=== PATIENT | male | born 1965 | race Caucasian/White ===

== ENCOUNTER 2019-09-12 19:49 | Emergency (ER) | payer OTHER ==
[~2019-09-12] VITALS: Ht 180.3 cm; Wt 108.0 kg
[~2019-09-12 19:49] MED LIST: BENICAR HCT 401 EACH PO; BENICAR20 MG PO; DOXAZOSIN MESYLA2 MG PO; ESIDRIX25 MG PO; LEVAQUIN500 MG PO; LOPRESSOR25 MG PO; METFORMIN HCL500 M2 PO; NIACIN50 MG PO; NIFEDIPINE ER30 M1 PO; PRAVASTATIN SOD20 MG PO; PREDNISONE10 MG PO
[2019-09-12] MEDS ORDERED: ONDANSETRON HCL INJ 2MG/ML 2ML 2 MG/ML VIAL IV NR (20:02)
[2019-09-12] MEDS ORDERED: IBUPROFEN 600 MG TAB ONE (20:03)
[2019-09-12] MEDS ORDERED: MECLIZINE HCL 12.5 MG TAB PO NR (20:15)
[2019-09-12 20:23] LABS: BASOPHILS # (AUTO) 0.1 (0.0-0.1); BASOPHILS % 0.5 % (0.0-1.0); EOSINOPHILS # (AUTO) 0.1 (0.0-0.4); EOSINOPHILS % 0.7 % (0.0-6.0); HEMATOCRIT 46.4 % (38.2-49.6); HEMOGLOBIN 16.1 g/dL (14.0-18.0); LYMPHOCYTES # (AUTO) 2.7 (1.0-3.2); LYMPHOCYTES % 17.8 % (18.0-39.1); MEAN CORPUSCULAR HEMOGLOBIN 28.3 pg (28-32); MEAN CORPUSCULAR HGB CONC 34.7 g/dL (31-35); MEAN CORPUSCULAR VOLUME 81.7 fL (81-99); MONOCYTES # (AUTO) 0.6 (0.2-0.8); MONOCYTES % 4.1 % (4.4-11.3); NEUTROPHILS # (AUTO) 11.6 (2.1-6.9); NEUTROPHILS % 76.6 % (38.7-80.0); PLATELET COUNT 267 x10e3/uL (140-360); RED BLOOD COUNT 5.68 x10e6/uL (4.3-5.7); RED CELL DISTRIBUTION WIDTH 13.3 % (11.7-14.4)
[2019-09-12] MEDS ORDERED: MECLIZINE HCL 12.5 MG TAB ONE (20:36)
[2019-09-12 20:37] LABS: ANION GAP 16.7 mmol/L (8-16); CALCIUM 9.9 mg/dL (8.4-10.2); CREATININE, SERUM 1.3 mg/dL (0.72-1.25); POTASSIUM 3.7 mmol/L (3.5-5.1)
--- NOTE | 2019-09-12 21:48 | Diagnostic Imaging Report ---
EXAMINATION: Head CT without contrast. HISTORY:Dizziness. COMPARISON:Multiple prior studies, most recent CT head from 05/17/2017. TECHNIQUE: Multidetector axial images were obtained from the foramen magnum to the vertex without contrast. The images were reconstructed using brain and bone algorithms. Thin section brain images were reformatted into coronal and sagittal planes. Dose modulation, iterative reconstruction, and/or weight based adjustment of the mA/kV was utilized to reduce the radiation dose to as low as reasonably achievable. Intravenous contrast: None IMAGE QUALITY: Acceptable. FINDINGS: Skull/scalp: Expected postoperative changes from prior right frontoparietal craniotomy. Parenchyma: Unchanged chronic encephalomalacia in the right superior frontal gyrus extends posteriorly to right precentral gyrus. Nonspecific few, scattered supratentorial white matter hypodensity are likely related to small vessel ischemic changes. No acute hemorrhage, mass or acute major vascular territorial infarct. Arteries: No density suggestive of thrombosis. Dural sinuses: No abnormal density suggestive of thrombosis. Ventricles: No hydrocephalus or displacement. Extra-axial spaces: Mild right frontal dural based calcification beneath the craniotomy possibly related to prior intervention. Brain volume: Normal for age. Craniocervical junction: No mass, Chiari malformation, or basilar invagination. Sella: No mass. Paranasal/mastoid sinuses: Mild mucosal thickening in left maxillary sinus. IMPRESSION: No acute intracranial abnormality. No significant change since CT brain from 05/17/2017. Chronic findings: 1. Chronic encephalomalacia in right frontal lobe beneath right frontoparietal craniotomy for previous extra-axial mass resection. 2. Mild supratentorial white matter microvascular ischemic changes. Signed by: Dr. Madiha Zabala M.D. on 09/12/2019 9:45 PM
--- NOTE | 2019-09-12 22:20 | Diagnostic Imaging Report ---
EXAMINATION: CHEST 2 VIEWS INDICATION: Fatigue, dizziness COMPARISON: None FINDINGS: PA and lateral views TUBES and LINES: None. LUNGS: Lungs are well inflated. Lungs are clear. There is no evidence of pneumonia or pulmonary edema. PLEURA: No pleural effusion or pneumothorax. HEART AND MEDIASTINUM: The cardiomediastinal silhouette is unremarkable. BONES AND SOFT TISSUES: No acute osseous lesion. Soft tissues are unremarkable. Mild degenerative changes in the spine. UPPER ABDOMEN: No free air under the diaphragm. IMPRESSION: No acute thoracic radiographic abnormality. Signed by: Amor Awad DO on 09/12/2019 10:16 PM
[2019-09-12 22:30] VITALS: BP 142/84
[2019-09-12] MEDS ORDERED: ACETAMINOPHEN 325 MG TAB ONE (22:37)
[2019-09-12] MEDS ORDERED: ACETAMINOPHEN 325 MG TAB PO ONE (22:45)
[2019-09-12 22:48] LABS: BILIRUBIN,URINE NEGATIVE (NEGATIVE); CLARITY,URINE SL CLOUDY (CLEAR); COLOR,URINE YELLOW (YELLOW); KETONES,URINE NEGATIVE (NEGATIVE); LEUKOCYTE ESTERASE ,URINE NEGATIVE (NEGATIVE); NITRITE,URINE NEGATIVE (NEGATIVE); PROTEIN,URINE DIPSTICK 1+ (NEGATIVE); URINE UROBILINOGEN 0.2 mg/dL (0.2 - 1)
[2019-09-12 23:10] LABS: BACTERIA,URINE FEW /HPF; EPITHELIAL CELLS,URINE FEW /LPF; MUCUS,URINE MANY (RARE); TRANSITIONAL EPI CELLS,URINE FEW; WBC,URINE (MAN) 21-50 /HPF (0-5)
[2019-09-12] MEDS ORDERED: CEFTRIAXONE SOD 1 GM/NS 50 ML 50 ML IV ONE (23:30)
== END 2019-09-13 00:10 | disposition home or self-care (01) ==
LOC: ER 19:49
DX: H81.11 Benign paroxysmal vertigo, right ear (principal); R53.1 Weakness; N30.90 Cystitis, unspecified without hematuria
CPT/HCPCS: 36415; 70450; 71046; 80048; 81001; 85025; 87400; 99284; J0696; J2405; J8597

== ENCOUNTER 2024-09-12 12:04 | Emergency (ER) | payer OTHER ==
[~2024-09-12] VITALS: Ht 180.3 cm; Wt 108.0 kg
[2024-09-12] MEDS: SODIUM CHLORIDE 0.9% 1000ML 1,000 ML IV SCH (12:51)
[2024-09-12] MEDS: KETOROLAC TROMETHAMINE 30 MG/ML VIAL IV STA (12:51)
[2024-09-12 12:52] LABS: BASOPHILS # (AUTO) 0.1 (0.0-0.1); BASOPHILS % 0.8 % (0.0-1.0); EOSINOPHILS # (AUTO) 0.1 (0.0-0.4); EOSINOPHILS % 0.8 % (0.0-6.0); HEMATOCRIT 42.6 % (38.2-49.6); HEMOGLOBIN 14.6 g/dL (14.0-18.0); LYMPHOCYTES # (AUTO) 1.4 (1.0-3.2); LYMPHOCYTES % 21.3 % (18.0-39.1); MEAN CORPUSCULAR HEMOGLOBIN 28.2 pg (28-32); MEAN CORPUSCULAR HGB CONC 34.3 g/dL (31-35); MEAN CORPUSCULAR VOLUME 82.2 fL (81-99); MONOCYTES # (AUTO) 0.5 (0.2-0.8); MONOCYTES % 8.4 % (4.4-11.3); NEUTROPHILS # (AUTO) 4.3 (2.1-6.9); NEUTROPHILS % 67.6 % (38.7-80.0); PLATELET COUNT 330 x10e3/uL (140-360); RED BLOOD COUNT 5.18 x10e6/uL (4.3-5.7); RED CELL DISTRIBUTION WIDTH 12.8 % (11.7-14.4); WHITE BLOOD COUNT 6.34 x10e3/uL (4.8-10.8)
[2024-09-12 12:59] LABS: STREPTOCOCCUS GRP A ANTIGEN NEGATIVE (NEGATIVE)
[2024-09-12 13:05] LABS: RESPIRATORY SYNC. VIRUS NEGATIVE (NEGATIVE)
[2024-09-12 13:06] LABS: INFLUENZAE A&B ANTIGEN (RAPID) NEGATIVE (NEGATIVE)
[2024-09-12 13:08] LABS: COVID 19 ANTIGEN NOT DETECTED (NEGATIVE)
[2024-09-12 13:23] LABS: CLARITY,URINE HAZY (CLEAR); COLOR,URINE YELLOW (YELLOW); GLUCOSE, URINE NEGATIVE (NEGATIVE); KETONES,URINE TRACE (NEGATIVE); LEUKOCYTE ESTERASE ,URINE NEGATIVE (NEGATIVE); NITRITE,URINE NEGATIVE (NEGATIVE); PH,URINE 5.5 (5 - 7); PROTEIN,URINE DIPSTICK 1+ (NEGATIVE); URINE UROBILINOGEN 1 mg/dL (0.2 - 1)
[2024-09-12 13:24] LABS: BILIRUBIN,URINE SMALL (NEGATIVE)
[2024-09-12 13:27] LABS: BACTERIA,URINE MANY /HPF; EPITHELIAL CELLS,URINE MODERATE /LPF; RBC,URINE 0-5 /HPF (0-5); WBC,URINE (MAN) 0-5 /HPF (0-5)
[2024-09-12 13:31] LABS: ANION GAP 18.9 mmol/L (8-16); BLOOD UREA NITROGEN 17 mg/dL (7-26); BUN/CREATININE RATIO 14 (6-25); CALCIUM 9.5 mg/dL (8.4-10.2); CARBON DIOXIDE 24 mmol/L (22-29); CHLORIDE 93 mmol/L (98-107); CREATININE, SERUM 1.18 mg/dL (0.72-1.25); EST GLOMERULAR FILTRATION RATE 70 ML/MIN (>=60); GLUCOSE 237 mg/dL (74-118); SODIUM 133 mmol/L (136-145)
[2024-09-12 13:35] LABS: POTASSIUM 2.9 mmol/L (3.5-5.1)
[2024-09-12] MEDS: POTASSIUM CHLORIDE 20 MEQ TAB CR PO ONE (13:48)
[2024-09-12] MEDS ORDERED: CEFDINIR300 MG PO (13:56)
[2024-09-12 14:12] VITALS: PULSE 96; RESP 16; TEMP 98.2; O2SAT 95
== END 2024-09-12 14:01 | disposition home or self-care (01) ==
LOC: ER 12:15
DX: R42 Dizziness and giddiness (principal); N39.0 Urinary tract infection, site not specified; I10 Essential (primary) hypertension; E11.65 Type 2 diabetes mellitus with hyperglycemia; M10.9 Gout, unspecified; Z11.52 Encounter for screening for COVID-19
CPT/HCPCS: 0223U; 36415; 71045; 80048; 81001; 83518; 85025; 87070; 87400; 87420; 99283; J1885; J7030